=== PATIENT | female | born 1945 | race Caucasian/White ===

== ENCOUNTER 2021-02-07 09:51 | Emergency (ER) | payer MEDICARE ==
[~2021-02-07] VITALS: Ht 157.5 cm; Wt 60.0 kg
[~2021-02-07 09:51] MED LIST: ADVAIR DISK1 IN; ARIMIDEX1 MG PO; BENADRYL 25MG C25 MG PO; CALCIUM + D3 601 TAB PO; CENTRUM SILVER ULTRA PO; COLACE CLEAR50 MG PO; FLONASE NASAL50 MCG; LASIX 20 MG20 MG/TAB PO; LEVAQUIN750 MG PO; MEDDOSEPAK PO; MICRO-K10 ME1 PO; PROAIR HFA IN; SPIRIVA IN; TYLENOL 500MG TAB PO; ULTRAM50 M1 PO; WARFARIN2 MG PO; ZYRTEC10 MG PO
[2021-02-07 10:51] LABS: HEMATOCRIT 31.8 % (37.0-47.0); HEMOGLOBIN 10.1 g/dl (12.0-16.0); IMMATURE GRANULOCYTES 0.5 % (0.0-5.0); MEAN CELL VOLUME 116.5 fL CALC (80.0-100.0); MEAN CORPUSCULAR HGB CONC 31.8 g/dL CAL (32.0-36.0); NEUT# 4.45 thou/uL (2.00-7.15); RED BLOOD COUNT 2.73 mill/uL (4.20-5.60); RED CELL DISTRI WIDTH 21.6 % (11.5-15.5)
[2021-02-07 11:09] LABS: ALBUMIN 3.5 g/dL (3.2-5.0); ALKALINE PHOSPHATASE 180 u/l (38-126); ANION GAP 11 (6-22 (CALC)); BUN 27 mg/dL (8-23); BUN/CREATININE RATIO 26 (12-20 (CALC)); CARBON DIOXIDE 35 mmol/l (22-30); CHLORIDE 97 mmol/l (95-108); GFR 54 ML/MIN (>=60 (CALC)); GFR FOR AFR.AMER. > 60 ML/MIN (>=60 (CALC)); POTASSIUM 4.1 mmol/l (3.5-5.1); SGOT/AST 40 u/l (9-36); SODIUM 139 mmol/l (137-146); TOTAL PROTEIN 7.8 g/dL (6.3-8.2)
[2021-02-07 11:12] LABS: BILIRUBIN, TOTAL 2.7 mg/dL (0.0-1.4)
[2021-02-07 11:14] LABS: INTERNATIONAL NORMALIZED RATIO 1.7 RATIO (0.7-1.3); PROTHROMBIN TIME 17.1 SECONDS (9.0-12.5)
[2021-02-07 13:02] VITALS: BP 138/67
== END 2021-02-07 13:15 | disposition short-term general hospital (02) ==
LOC: ED 09:51
PROVIDERS: Family Medicine
DX: I11.0 Hypertensive heart disease with heart failure (principal); I50.9 Heart failure, unspecified; J18.9 Pneumonia, unspecified organism; Z85.3 Personal history of malignant neoplasm of breast; Z85.528 Personal history of other malignant neoplasm of kidney; Z92.3 Personal history of irradiation; Z92.21 Personal history of antineoplastic chemotherapy; Z90.5 Acquired absence of kidney; Z90.10 Acquired absence of unspecified breast and nipple; Z95.0 Presence of cardiac pacemaker; Z96.89 Presence of other specified functional implants
CPT/HCPCS: Q9967

== ENCOUNTER 2021-08-02 14:36 | Emergency (ER) | payer MEDICARE ==
[2021-08-02] VITALS (7 sets, daily range): BP systolic 137–149; BP diastolic 56–73
[~2021-08-02] VITALS: Ht 157.5 cm; Wt 52.7 kg
[2021-08-02 15:40] LABS: HEMOGLOBIN 10.5 g/dl (12.0-16.0); IMMATURE GRANULOCYTES 0.8 % (0.0-5.0); MEAN CELL VOLUME 109.2 fL CALC (80.0-100.0); MEAN CORPUSCULAR HGB 35.8 pG CALC (26.0-32.0); MEAN CORPUSCULAR HGB CONC 32.8 g/dL CAL (32.0-36.0); NEUT# 6.08 thou/uL (2.00-7.15); RED BLOOD COUNT 2.93 mill/uL (4.20-5.60); RED CELL DISTRI WIDTH 19.3 % (11.5-15.5)
[2021-08-02 15:49] LABS: ALBUMIN 3.9 g/dL (3.2-5.0); ALKALINE PHOSPHATASE 123 u/l (38-126); ANION GAP 8 (6-22 (CALC)); BUN 35 mg/dL (8-23); BUN/CREATININE RATIO 36 (12-20 (CALC)); CARBON DIOXIDE 38 mmol/l (22-30); CHLORIDE 96 mmol/l (95-108); CPK 40 u/l (30-165); GFR 54 ML/MIN (>=60 (CALC)); GFR FOR AFR.AMER. > 60 ML/MIN (>=60 (CALC)); LIPASE 93 u/l (23-300); MAGNESIUM 2.1 mg/dL (1.6-2.3); POTASSIUM 4.3 mmol/l (3.5-5.1); SGOT/AST 45 u/l (9-36); SODIUM 137 mmol/l (137-146)
[2021-08-02 15:56] LABS: BILIRUBIN, TOTAL 1.1 mg/dL (0.0-1.4)
[2021-08-02 16:13] LABS: ACT PARTIAL THROMBO TIME 36.8 SECONDS (20.0-32.5)
[2021-08-02 16:14] LABS: INTERNATIONAL NORMALIZED RATIO 3.1 RATIO (0.7-1.3); PROTHROMBIN TIME 30.2 SECONDS (9.0-12.5)
== END 2021-08-02 17:53 | disposition left against medical advice (07) ==
LOC: ED 14:36
PROVIDERS: Internal Medicine
DX: J44.1 Chronic obstructive pulmonary disease with (acute) exacerbation (principal); J18.9 Pneumonia, unspecified organism; J44.0 Chronic obstructive pulmonary disease with (acute) lower respiratory infection; R07.9 Chest pain, unspecified; I10 Essential (primary) hypertension; I27.20 Pulmonary hypertension, unspecified; Z95.0 Presence of cardiac pacemaker; Z79.01 Long term (current) use of anticoagulants; Z91.19 Patient's noncompliance with other medical treatment and regimen; Z20.822 Contact with and (suspected) exposure to COVID-19

== ENCOUNTER 2021-08-06 14:29 | Emergency (ER) | payer MEDICARE ==
[2021-08-06] VITALS (8 sets, daily range): BP systolic 99–148; BP diastolic 38–69
[~2021-08-06] VITALS: Ht 157.5 cm; Wt 51.8 kg
[2021-08-06 15:24] LABS: URINE BILIRUBIN - DIPSTICK NEGATIVE (NEGATIVE); URINE BLOOD DIPSTICK MODERATE (NEGATIVE); URINE COLOR YELLOW; URINE GLUCOSE - DIPSTICK NEGATIVE (NEGATIVE); URINE KETONE NEGATIVE (NEGATIVE); URINE LEUK ESTERASE NEGATIVE (NEGATIVE); URINE PROTEIN - DIPSTICK NEGATIVE (NEG-TRACE); URINE SPECIFIC GRAVITY 1.015
[2021-08-06 15:28] LABS: HEMATOCRIT 34.2 % (37.0-47.0); HEMOGLOBIN 11.4 g/dl (12.0-16.0); IMMATURE GRANULOCYTES 0.8 % (0.0-5.0); MEAN CELL VOLUME 107.2 fL CALC (80.0-100.0); MEAN CORPUSCULAR HGB 35.7 pG CALC (26.0-32.0); MEAN CORPUSCULAR HGB CONC 33.3 g/dL CAL (32.0-36.0); NEUT# 4.15 thou/uL (2.00-7.15); RED BLOOD COUNT 3.19 mill/uL (4.20-5.60); RED CELL DISTRI WIDTH 18.5 % (11.5-15.5)
[2021-08-06 15:41] LABS: INTERNATIONAL NORMALIZED RATIO 3.5 RATIO (0.7-1.3); PROTHROMBIN TIME 34.2 SECONDS (9.0-12.5)
[2021-08-06 15:42] LABS: URINE NITRITE - DIPSTICK NEGATIVE (Negative); URINE TRANSITIONAL EPI. CELLS RARE hpf
[2021-08-06 15:44] LABS: ALKALINE PHOSPHATASE 156 u/l (38-126); ANION GAP 10 (6-22 (CALC)); BILIRUBIN, TOTAL 1.4 mg/dL (0.0-1.4); BUN 25 mg/dL (8-23); BUN/CREATININE RATIO 26 (12-20 (CALC)); CARBON DIOXIDE 36 mmol/l (22-30); CHLORIDE 93 mmol/l (95-108); GFR 54 ML/MIN (>=60 (CALC)); GFR FOR AFR.AMER. > 60 ML/MIN (>=60 (CALC)); LIPASE 105 u/l (23-300); POTASSIUM 4.3 mmol/l (3.5-5.1); SGOT/AST 43 u/l (9-36); SODIUM 135 mmol/l (137-146); TOTAL PROTEIN 8.5 g/dL (6.3-8.2)
[2021-08-06 15:55] LABS: MYOGLOBIN 62 ng/mL (0 - 62)
== END 2021-08-06 18:29 | disposition short-term general hospital (02) ==
LOC: ED 14:29
PROVIDERS: Nurse Practitioner
DX: R07.9 Chest pain, unspecified (principal); I10 Essential (primary) hypertension; I27.20 Pulmonary hypertension, unspecified; Z79.01 Long term (current) use of anticoagulants